=== PATIENT | male | born 1960 | race African-American/Black ===

== ENCOUNTER 2016-10-31 16:25 | Emergency (ER) | payer SELFPAY ==
[~2016-10-31] VITALS: Ht 182.9 cm; Wt 91.0 kg
[~2016-10-31 16:25] MED LIST: ABRE10CR TOP; PYRI200T4 PO; SULF1TAB47 PO; Z.0.UNKNOWN
[2016-10-31 16:26] VITALS: BP 187/107; PULSE 68; RESP 20; TEMP 98; O2SAT 99
--- NOTE | 2016-10-31 16:34 | PD ---
Physical Exam Time Seen by Provider: 16:31 Narrative 56 year old male sent by Dr. Michi Musa (ophthalmology) for evaluation of blurred vision, dizziness, headache x 1 year. Patient has HX of glaucoma & cataracts. Patient denies weakness or numbness in extremities. Patient seen at triage desk. Vital signs reviewed. awaiting bed placement. Data Data Last Documented VS Vital Signs Date Time Temp Pulse Resp B/P Pulse Ox O2 Delivery O2 Flow Rate FiO2 10/31/16 16:26 98.0 68 20 187/107 99 Room Air MDM Supervised Visit with TONY: Lissette Marina Oct 31, 2016 16:34
--- NOTE | 2016-10-31 17:57 | PD ---
HPI Chief Complaint: Eye Problems/Injury Time Seen by Provider: 17:57 Travel History International Travel<30 days: No Contact w/Intl Traveler<30days: No Traveled to known affect area: No History of Present Illness HPI 56-year-old male presents to the emergency department for evaluation of blurred vision, headache and dizziness for 10 years. States that his symptoms have been worsening over the last several years. States that today he was seen by a new PCP for a new patient visit and mentioned these complaints and was told to come to the emergency department immediately for evaluation of possible glaucoma. The patient states that he does have some pressure behind his eyes. He denies any weakness, numbness or tingling, slurred speech, facial droop, chest pain, shortness of breath, abdominal pain. States that he has high blood pressure but has not been on any medication because he has never had a PCP. States that he has a history of head trauma about 30 years ago with an intracranial hemorrhage. No recent trauma. Patient admits to drinking about 4 beers daily. Denies drug use. No other complaints PFSH Past Medical History Hypertension: Yes Social History Alcohol Use: Yes (12 beers daily) Tobacco Use: Yes (1 PPD) Substance Use: No Allergies-Medications (Allergen,Severity, Reaction): Coded Allergies: No Known Allergies (Unverified , 10/31/16) Reported Meds & Prescriptions Reported Meds & Active Scripts Active Abreva (Docosanol) 10 % Cre 10 % TOP BIDPRN Bactrim Ds (Trimethoprim/Sulfamethoxazole) Tab 1 Tab PO BID Pyridium (Phenazopyridine HCl) 200 Mg Tab 200 Mg PO Q8HPRN Reported Unknown Meds (Miscellaneous Medication) Misc Review of Systems Except as stated in HPI: all other systems reviewed are Neg Physical Exam Narrative GENERAL: Well-nourished and well-developed pleasant male patient in no acute distress who is nontoxic appearing. SKIN: Warm and dry. HEAD: Normocephalic and atraumatic. EYES: No injection, drainage, or hyphema noted. PERRLA. EOMI. Funduscopic examination is limited due to no pupillary dilation but no acute abnormality is noted. Tonometry shows intraocular pressure of 17 in the right eye and 20 in the left eye. ENT: No nasal drainage noted. Oropharynx is clear. NECK: Supple and the trachea is midline. CARDIOVASCULAR: Regular rate and rhythm. RESPIRATORY: Breath sounds are equal bilaterally with no accessory muscle use, wheezing, rhonchi, or crackles. GASTROINTESTINAL: Abdomen is soft, non-tender, and nondistended. MUSCULOSKELETAL: No obvious deformities, swelling, cyanosis, or ecchymosis is present throughout the upper and lower extremities. Patient has full range of motion without any signs of neurovascular compromise. Strength 5/5 upper and lower extremities and equal bilaterally. NEUROLOGICAL: Awake, alert, and oriented. Normal speech and gait. Cranial nerves are grossly intact. Data Data Last Documented VS Vital Signs Date Time Temp Pulse Resp B/P Pulse Ox O2 Delivery O2 Flow Rate FiO2 10/31/16 19:06 72 18 125/79 98 Room Air 10/31/16 16:26 98.0 Orders Electrocardiogram (10/31/16 17:55) Complete Blood Count With Diff (10/31/16 17:55) Comprehensive Metabolic Panel (10/31/16 17:55) Magnesium (Mg) (10/31/16 17:55) Ct Brain W/O Iv Contrast(Rout) (10/31/16 17:55) Ecg Monitoring (10/31/16 17:55) Iv Access Insert/Monitor (10/31/16 17:55) Oximetry (10/31/16 17:55) Sodium Chloride 0.9% Flush (Ns Flush) (10/31/16 18:00) Alcohol (Ethanol) (10/31/16 17:55) Proparacaine 0.5% Opth Soln (Alcaine 0.5 (10/31/16 18:00) Labs Laboratory Tests Test 10/31/16 18:10 White Blood Count 5.9 TH/MM3 Red Blood Count 5.34 MIL/MM3 Hemoglobin 14.9 GM/DL Hematocrit 46.4 % Mean Corpuscular Volume 86.8 FL Mean Corpuscular Hemoglobin 27.9 PG Mean Corpuscular Hemoglobin 32.1 % Concent Red Cell Distribution Width 15.0 % Platelet Count 197 TH/MM3 Mean Platelet Volume 8.0 FL Neutrophils (%) (Auto) 55.6 % Lymphocytes (%) (Auto) 28.6 % Monocytes (%) (Auto) 13.0 % Eosinophils (%) (Auto) 2.4 % Basophils (%) (Auto) 0.4 % Neutrophils # (Auto) 3.3 TH/MM3 Lymphocytes # (Auto) 1.7 TH/MM3 Monocytes # (Auto) 0.8 TH/MM3 Eosinophils # (Auto) 0.1 TH/MM3 Basophils # (Auto) 0.0 TH/MM3 CBC Comment DIFF FINAL Differential Comment Sodium Level 140 MEQ/L Potassium Level 4.2 MEQ/L Chloride Level 106 MEQ/L Carbon Dioxide Level 25.9 MEQ/L Anion Gap 8 MEQ/L Blood Urea Nitrogen 12 MG/DL Creatinine 1.06 MG/DL Estimat Glomerular Filtration 87 ML/MIN Rate Random Glucose 81 MG/DL Calcium Level 9.5 MG/DL Magnesium Level 2.5 MG/DL Total Bilirubin 0.5 MG/DL Aspartate Amino Transf 31 U/L (AST/SGOT) Alanine Aminotransferase 29 U/L (ALT/SGPT) Alkaline Phosphatase 53 U/L Total Protein 7.7 GM/DL Albumin 3.7 GM/DL Ethyl Alcohol Level LESS THAN 3 MG/DL MDM Medical Decision Making Medical Screen Exam Complete: Yes Emergency Medical Condition: Yes Differential Diagnosis Uncontrolled hypertension versus migraine headache versus intracranial hemorrhage unlikely versus glaucoma Narrative Course 56-year-old male presents to the emergency department for evaluation of blurred vision, headaches and dizziness for 10 years. Patient is afebrile, vital signs are stable. He was seen by a new PCP today who sent him to the ED for evaluation. No focal neurologic deficits on examination. Head CT has been ordered and is pending. IV access is obtained, labs were drawn and sent. Head CT is negative. CBC is unremarkable. CMP is unremarkable. EtOH is negative. Labs and imaging are unremarkable. Tonometry reveals intraocular pressures are within normal limits. This is been ongoing for 10 years. There is no urgent or emergent intervention necessary at this time. Discussed all findings with the patient and family. Patient is advised to follow-up with outpatient with his PCP and an utility tech. Patient verbalizes understanding and agreement with treatment plan. I discussed the case with my attending physician Dr. Aaron who is aware of the patients history, physical examination findings, and treatment plan. Diagnosis Primary Impression: Headache Qualified Code: R51 - Chronic nonintractable headache, unspecified headache type Additional Impression: Visual changes Referrals: Vocational Services Specialist Primary Care Physician Patient Instructions: General Instructions Additional Instructions: We performed a head CT which was unremarkable. We performed a CBC and CMP that was unremarkable. Your intraocular pressures were noted to be within normal range. There has been no acute findings on labs, imaging or physical exam while here in the emergency department. He should follow up as an outpatient with your primary care provider and an utility tech for your chronic headache and blurred vision. If you develop any acute worsening of symptoms please return immediately to the emergency department. Med/Other Pt SpecificInfo: No Change to Meds Disposition: 01 DISCHARGE HOME Condition: Stable Carolyn Rodriguez Oct 31, 2016 17:57
[2016-10-31] MEDS ORDERED: SODIUM CHLORIDE 0.9% FLUSH 10 ML FLUSH IVF PRN (18:00)
[2016-10-31] MEDS ORDERED: PROPARACAINE HCL 0.5% OPHT SOLN 15 ML BTL EACH EYE ONE (18:00)
[2016-10-31 18:30] LABS: AUTOMATED NEUTROPHIL # 3.3 TH/MM3 (1.8-7.7); BASOPHIL % 0.4 % (0.0-2.0); EOSINOPHIL # 0.1 TH/MM3 (0-0.4); EOSINOPHIL % 2.4 % (0.0-4.0); HEMATOCRIT 46.4 % (39.0-51.0); HEMO FLAGS DIFF FINAL; LYMPH % 28.6 % (9.0-44.0); LYMPHOCYTE # 1.7 TH/MM3 (1.0-4.8); MEAN CELL VOLUME 86.8 FL (80.0-100.0); MEAN CORPUSCULAR HEMOGLOBIN 27.9 PG (27.0-34.0); MEAN CORPUSCULAR HGB CONC 32.1 % (32.0-36.0); NEUT % 55.6 % (16.0-70.0); PLATELET COUNT 197 TH/MM3 (150-450); RED BLOOD COUNT 5.34 MIL/MM3 (4.50-5.90); WHITE BLOOD COUNT 5.9 TH/MM3 (4.0-11.0)
--- NOTE | 2016-10-31 18:39 | RADRPT ---
EXAM DATE/TIME: 10/31/2016 18:15 [facility] COMPARISON: No previous studies available for comparison. INDICATIONS : Dizziness and blurred vision. RADIATION DOSE: 49.93 CTDIvol (mGy) MEDICAL HISTORY : None SURGICAL HISTORY : None. ENCOUNTER: Initial ACUITY: 1 day PAIN SCALE: 6/10 LOCATION: Bilateral cranial TECHNIQUE: Multiple contiguous axial images were obtained of the head. Using automated exposure control and adj ustment of the mA and/or kV according to patient size, radiation dose was kept as low as reasonably a chievable to obtain optimal diagnostic quality images. FINDINGS: CEREBRUM: The ventricles are normal for age. No evidence of midline shift, mass lesion, hemorrhage or acute in farction. No extra-axial fluid collections are seen. POSTERIOR FOSSA: The cerebellum and brainstem are intact. The 4th ventricle is midline. The cerebellopontine angle i s unremarkable. EXTRACRANIAL: The visualized portion of the orbits is intact. There is mucoperiosteal thickening of the visualized right maxillary air cell. SKULL: The calvaria is intact. No evidence of skull fracture. CONCLUSION: Negative noncontrast head CT. Walter Marroquin MD on October 31, 2016 at 18:36 Board Certified Radiologist. This report was verified electronically.
[2016-10-31 18:47] LABS: ANION GAP 8 MEQ/L (5-15); AST (GOT) 31 U/L (15-37); BICARBONATE 25.9 MEQ/L (21.0-32.0); BLOOD UREA NITROGEN 12 MG/DL (7-18); CHLORIDE 106 MEQ/L (98-107); GLOMERULAR FILTRATION RATE 87 ML/MIN (>89); MAGNESIUM 2.5 MG/DL (1.5-2.5); POTASSIUM 4.2 MEQ/L (3.5-5.1); SODIUM (NA) 140 MEQ/L (136-145)
[2016-10-31 18:49] LABS: ALT (GPT) 29 U/L (12-78)
[2016-10-31 18:51] LABS: ALKALINE PHOSPHATASE 53 U/L (45-117); TOTAL BILIRUBIN ADULT 0.5 MG/DL (0.2-1.0)
[2016-10-31 19:06] VITALS: BP 125/79; PULSE 72; RESP 18; O2SAT 98
== END 2016-10-31 19:44 | disposition home or self-care (01) ==
LOC: NEPC 16:25
DX: R51 Headache (principal); I10 Essential (primary) hypertension; F17.200 Nicotine dependence, unspecified, uncomplicated; H53.8 Other visual disturbances; R42 Dizziness and giddiness
CPT/HCPCS: 70450; 80053; 80307; 83735; 85025; 99284